=== PATIENT | male | born 2000 | race Caucasian/White ===

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

== ENCOUNTER 2021-10-28 15:14 | Emergency (ER) | payer OTHER ==
[~2021-10-28] VITALS: Ht 167.6 cm; Wt 93.0 kg
[2021-10-28 15:21] VITALS: BP_SYST 150; BP_SYST 194; BP_DIAS 74; BP_DIAS 91
--- NOTE | 2021-10-28 15:30 | NUR ---
BIB MOTHER C/O 01/19 RIGHT ANKLE PAIN S/P FALL X YESTERDAY. SKIN IS PINK/WARM/DRY; AAOX4 WITH EVEN AND STEADY GAIT; LUNGS CLEAR BL; HR EVEN AND REGULAR; PT DENIES ANY FEVER, CP, SOB, OR COUGH AT THIS TIME.
[2021-10-28] MEDS ORDERED: HYDROcodone/APAP 5/325 MG 1 TAB TAB PO ONE (15:50)
--- NOTE | 2021-10-28 16:10 | NUR ---
PT TAKEN TO X RAY.
[2021-10-28] MEDS ORDERED: NAPR-1704 PO (17:34)
[2021-10-28 17:40] VITALS: BP 123/65
--- NOTE | 2021-10-28 17:40 | NUR ---
Patient discharged with v/s stable. Written and verbal after care instructions given and explained. Patient alert, oriented and verbalized understanding of instructions. Ambulatory with CRUTCHES. All questions addressed prior to discharge. ID band removed. Patient advised to follow up with PMD. Rx of NAPROXEN given. Patient educated on indication of medication including possible reaction and side effects. Opportunity to ask questions provided and answered.
== END 2021-10-28 17:40 | disposition home or self-care (01) ==
LOC: MED 15:14
DX: S93.401A Sprain of unspecified ligament of right ankle, initial encounter (principal); Z79.1 Long term (current) use of non-steroidal anti-inflammatories (NSAID); W18.39XA Other fall on same level, initial encounter; Y92.89 Other specified places as the place of occurrence of the external cause; Y93.01 Activity, walking, marching and hiking; Y99.8 Other external cause status
CPT/HCPCS: 29515; 73610; 99283